=== PATIENT | female | born 1980 | race Caucasian/White ===

== ENCOUNTER → 2017-02-24 | Emergency (ER) | payer OTHER ==
[~2017-02-24] VITALS: Ht 172.7 cm; Wt 62.6 kg
[~2017-02-24] MED LIST: BACTRIM DS TAB1 EACH PO; CLINDAMYCIN HC300 MG PO; FLOMAX0.4 MG PO; FLUOXETINE HCL20 MG PO; KETOROLAC TROME10 MG PO; NORCO 5-325 TA1 EACH PO; PERCOCET 5-3251 EACH PO; XANAX0.25 MG PO; ZOFRAN ODT4 MG PO; ZYRTEC10 M3 PO
== END ==
LOC: ED 18:06
DX: N13.2 Hydronephrosis with renal and ureteral calculous obstruction (principal); F17.200 Nicotine dependence, unspecified, uncomplicated; Z90.89 Acquired absence of other organs; Z88.0 Allergy status to penicillin; Z79.899 Other long term (current) drug therapy
CPT/HCPCS: 74176; 80053; 81001; 82150; 83690; 84703; 85025; 96361; 96374; 96375; 96376; 99284; J1170; J1885; J2405; J7030

== ENCOUNTER 2017-03-11 10:55 | Day surgery (SDC) | payer OTHER ==
[~2017-03-11] VITALS: Ht 172.7 cm; Wt 62.6 kg
[~2017-03-11 10:55] MED LIST changes: -KETOROLAC TROME10 MG PO; -ZOFRAN ODT4 MG PO
--- NOTE | 2017-03-11 12:40 | NUR ---
PT UP TO THE BATHROOM WITH STBY ASST. VOID NOTED. BACK TO BED. WARM BLANKET GIVEN.
--- NOTE | 2017-03-11 14:23 | NUR ---
[facility]
--- NOTE | 2017-03-11 15:32 | NUR ---
PT UP TO BATHROOM, URINE RED, WITH SMALL CLOTS THROUGHOUT. PT BACK TO BED, COMPLAINS OF HEADACHE. PO PAIN MEDICATION GIVEN.
--- NOTE | 2017-03-11 15:58 | NUR ---
PT UP TO THE BATHROOM, VOID NOTED. NAUSEA REPORTED WITH EMESIS. PILL NOTED IN EMESIS BY JENSEN ARENAS. PT BACK TO BED. PO NAUSEA MED GIVEN PER ORDER.
--- NOTE | 2017-03-11 16:44 | NUR ---
PT REPORTS NAUSEA IS BETTER AND EATING CRACKERS. PT REQ TO DC HOME SO SHE CAN REST AT HOME. STILL REPORTS STILL HAVING A HEADACHE.
[2017-03-14] MEDS ORDERED: KETOROLAC TROME10 MG PO (21:07)
[2017-03-14] MEDS ORDERED: BACTRIM DS TAB1 EACH PO (23:11)
[2017-03-14] MEDS ORDERED: ZOFRAN ODT4 MG PO (23:11)
--- NOTE | 2017-03-19 14:30 | OR ---
[facility] [address], [place] [address] Signed DATE OF PROCEDURE: 03/11/17 PREOPERATIVE DIAGNOSES Right ureterolithiasis. Intermittent flank pain. POSTOPERATIVE DIAGNOSES Right ureterolithiasis. Intermittent flank pain. PROCEDURES Right flexible ureteroscopy with laser lithotripsy and basket extraction of stones. Cystoscopy with right retrograde pyelogram. Insertion of a right ureteral stent. SURGEONS: Kelly Long MD. ANESTHESIA: General. ESTIMATED BLOOD LOSS: Minimal. COMPLICATIONS: None. SPECIMENS Fragments of right ureteral calculus, sent to the lab for stone analysis. DRAINS A 6 x 26 cm contour double-J ureteral stent inserted in the right ureter. INDICATIONS FOR PROCEDURE Ms. Molina is a very pleasant 36-year-old female with no previous history of nephrolithiasis who presented to my clinic approximately a couple weeks ago with a 4-day history of severe intermittent right-sided flank pain and nausea. She was seen in emergency department in early February and underwent a CT scan, which revealed a 5-mm stone present at the right ureteropelvic junction with associated mild hydronephrosis. Her urine did not show any sign of infection at the time. Once she presented to clinic, she made the decision to attempt a trial passage of the stone. About a week later, she followed up in clinic and felt as though she had not been successful in passing the stone from its current position. A KUB performed at that time was unable to pinpoint the location of the stone. At that time, the patient decided to undergo elective right ureteroscopy, laser lithotripsy, and basket extraction of her stone. Electronically Signed By: KELLY LONG MD 03/19/17 1430 PATIENT NAME: MAYANK MOLINA OPERATIVE REPORT DATE OF : 76 PHYSICIAN: KELLY LONG MD REPORT #: [id number] REPORT IS CONFIDENTIAL AND NOT TO BE RELEASED WITHOUT AUTHORIZATION [facility] [address], [place] [address] Signed FINDINGS On cystoscopy, there was no evidence of any suspicious masses, lesions, or stones. Bilateral ureteral orifices are in their normal anatomic location and the effluxing clear urine. Right retrograde repair pyelogram revealed no obvious evidence of a ureteral calculus at any level of the ureter. Otherwise, did not reveal any significant findings. Right flexible nephroscopy revealed the presence of a 5-mm stone in the upper pole of the right kidney. The stone was fragmented using a holmium laser fiber and the stone fragments were extracted using a Zero tip escape basket. All of the stone fragments were successfully extracted without difficulty. A 6 x 26 cm contour double-J ureteral stent was inserted in the right ureter under fluoroscopic guidance without difficulty. PROCEDURE After informed consent was obtained, the patient was taken back to the operating room. [facility] operating room table where general anesthesia was induced. She was placed in the dorsal lithotomy position and genitalia prepped and draped in sterile fashion. Using a 30 degree lens on a 23-Spanish introducer, rigid cystoscope was inserted through her urethra into her bladder under direct visualization. Araya endoscopic views of the bladder were then obtained. Please see above findings. Attention was turned to the right ureteral orifice. The cone-tipped catheter was advanced to the level of the right ureteral orifice and a right retrograde pyelogram was performed. Please see above findings. The cone-tipped catheter was removed and a Sensor wire was then used to cannulate the right ureter. The Sensor wire was inserted all the way up to the level of the right renal pelvis. Fluoroscopy confirmed a d equate placement of the Sensor wire. Over the Sensor wire, a 11/13 ureteral access sheath was passed under fluoroscopic guidance into the right collecting system. A repeat retrograde pyelogram confirmed adequate placement of the sheath. Once the inner cannula was removed, the flexible ureteroscope was passed through the sheath and up into the right renal pelvis and a right flexible nephroscopy was performed. Please see above findings. The stone was located in the upper pole of the right kidney. The stone was fragmented using a holmium laser device at the 8 and 0.8 settings. The stone fragmented with somewhat with some difficulty. Once I was satisfied that the stone had been fragmented, a Zero tip basket was used to extract all the stone fragments from the kidney. This was performed without any complication. Once I was satisfied that all the stone fragments were completely removed, the ureteral scope was then withdrawn from the patient's right collecting system. The sheath was also withdrawn and removed from the patient's ureter. Prior to sheath removal, a Sensor wire was inserted into the right collecting system and placement was confirmed on fluoroscopy. Over the wire, a 6 x 26 cm contour double-J Electronically Signed By: KELLY LONG MD 03/19/17 1430 PATIENT NAME: MAYANK MOLINA OPERATIVE REPORT DATE OF : 76 PHYSICIAN: KELLY LONG MD REPORT #: [id number] REPORT IS CONFIDENTIAL AND NOT TO BE RELEASED WITHOUT AUTHORIZATION [address] [address] Signed ureteral stent was inserted into the patient's right ureter u n fern direct visualization without difficulty. Once the wire was pulled and adequate proximal coil was seen within the right renal pelvis along with adequate distal coil on cystoscopy. The patient's bladder was then drained and the cystoscope was removed. The procedure was then terminated. The patient tolerated the procedure well without any complication. She will now be transferred to the post anesthesia care unit in stable condition. DISPOSITION Ms. Molina will be discharged to home from the outpatient surgery Center today in stable condition. She was given 5 days worth of Cipro 500 mg p.o. b.i.d. I was told by her that she still has enough Percocet to be used as needed for pain control postoperatively. She will be scheduled to return to clinic this March 14 to undergo cystoscopy with right ureteral stent extraction. At that time, we can discuss the results of her stone analysis. MD SHERRON Palomino/Maile /[id number] Electronically Signed By: KELLY LONG MD 03/19/17 1430 PATIENT NAME: MAYANK MOLINA OPERATIVE REPORT DATE OF : 76 PHYSICIAN: KELLY LONG MD REPORT #: [id number] REPORT IS CONFIDENTIAL AND NOT TO BE RELEASED WITHOUT AUTHORIZATION
== END 2017-03-11 16:35 | disposition home or self-care (01) ==
LOC: OPS 10:55 → DS 10:55 → OPS 13:00 → DS 13:00 → OPS 16:35
PROVIDERS: Urology
PROC: 0TF68ZZ Fragmentation in Right Ureter, Via Natural or Artificial Opening Endoscopic (ICD-10-PCS; principal; 2017-03-11 13:00)
PROC: 0T768DZ Dilation of Right Ureter with Intraluminal Device, Via Natural or Artificial Opening Endoscopic (ICD-10-PCS; 2017-03-11 13:00)
PROC: BT1DYZZ Fluoroscopy of Right Kidney, Ureter and Bladder using Other Contrast (ICD-10-PCS; 2017-03-11 13:00)
DX: N13.2 Hydronephrosis with renal and ureteral calculous obstruction (principal); F32.9 Major depressive disorder, single episode, unspecified; J30.2 Other seasonal allergic rhinitis; Z90.89 Acquired absence of other organs; F17.210 Nicotine dependence, cigarettes, uncomplicated; Z98.51 Tubal ligation status; Z98.890 Other specified postprocedural states; Z91.018 Allergy to other foods; Z88.0 Allergy status to penicillin; Z91.012 Allergy to eggs; Z79.899 Other long term (current) drug therapy
CPT/HCPCS: 00918; 36415; 74450; 80048; 82365; 84703; 85025; C2617; J1956; J2405; J2704; J3010; J7120; Q9967

== ENCOUNTER 2020-08-27 17:39 | Emergency (ER) | payer OTHER ==
[~2020-08-27] VITALS: Ht 172.7 cm; Wt 62.6 kg
[~2020-08-27 17:39] MED LIST changes: +KETOROLAC TROME10 MG PO; +ZOFRAN ODT4 MG PO
--- OUTSIDE RECORDS SUMMARY | 2020-08-27 17:42 | XMS ---
PreManage Notification: MAYANK BUCKLEY Security Register Of Wills Events No recent Security Events currently on file CRITERIA MET - [facility] CARE PROVIDERS CED STRONG Physician Protective Services Social Worker Current PHONE: [phone] Sergio has no Care Guidelines for this patient. ELance VISIT COUNT (12 MO.) 1 [facility] TOTAL 1 NOTE: Visits indicate total known visits. ED/UCC VISIT TRACKING (12 MO.) 08/27/2020 17:39 [facility] [place] TYPE: Emergency COMPLAINT: - HEADACHE, VOMITING INPATIENT VISIT TRACKING (12 MO.) No inpatient visits to display in this time frame [email or web address]
[2020-08-27] MEDS ORDERED: METHOCARBAMOL750 MG PO (18:04)
[2020-08-27] MEDS ORDERED: HYDROXYZINE HCL25 MG PO (18:05)
== END 2020-08-27 20:24 | disposition home or self-care (01) ==
LOC: ED 17:39
DX: G43.909 Migraine, unspecified, not intractable, without status migrainosus (principal); F17.200 Nicotine dependence, unspecified, uncomplicated; Z88.0 Allergy status to penicillin; Z91.012 Allergy to eggs; Z79.899 Other long term (current) drug therapy
CPT/HCPCS: 96374; 96375; 99283-25; J0780; J1100; J1200; J2765; J7030

== ENCOUNTER 2021-12-18 19:08 | Emergency (ER) | payer OTHER ==
[~2021-12-18] VITALS: Ht 172.7 cm; Wt 69.0 kg
[~2021-12-18 19:08] MED LIST changes: +HYDROXYZINE HCL25 MG PO; +METHOCARBAMOL750 MG PO
--- OUTSIDE RECORDS SUMMARY | 2021-12-18 19:10 | XMS ---
PreManage Notification: MAYANK BUCKLEY Security Public Address System Mechanic Events No recent Security Events currently on file CRITERIA MET - [facility] CARE PROVIDERS MICHAELA DIA Physician 08/29/2020-Current PHONE: Unknown CED STRONG Physician Current PHONE: [phone] Sergio has no Care Guidelines for this patient. Naren VISIT COUNT (12 MO.) 1 [facility] Desir TOTAL 1 NOTE: Visits indicate total known visits. ED/UCC VISIT TRACKING (12 MO.) 12/18/2021 19:09 [facility] [place] TYPE: Emergency COMPLAINT: - HEADACHE INPATIENT VISIT TRACKING (12 MO.) No inpatient visits to display in this time frame [email or web address]
== END 2021-12-18 21:09 | disposition home or self-care (01) ==
LOC: ED 19:08
DX: G43.909 Migraine, unspecified, not intractable, without status migrainosus (principal); F17.200 Nicotine dependence, unspecified, uncomplicated; Z88.0 Allergy status to penicillin; Z91.012 Allergy to eggs; Z79.899 Other long term (current) drug therapy
CPT/HCPCS: J0780; J1200; J1885; J7121